=== PATIENT | female | born 1960 | race Caucasian/White ===

== ENCOUNTER 2017-06-20 10:37 | Inpatient (IN) | payer MEDICARE ==
[2017-06-20] MEDS ORDERED: MAGNESIUM HYDROXIDE 2,400 MG/10 ML CUP PO PRN (12:27)
[2017-06-20] MEDS ORDERED: ACETAMINOPHEN TAB 325 MG TAB PO PRN (12:27)
[2017-06-20] MEDS ORDERED: MAG HYDROX/AL HYDROX/SIMETH 30 ML CUP PO PRN (12:27)
[2017-06-20] MEDS ORDERED: ZIPRASIDONE 20 MG VIAL IM PRN (12:27)
[2017-06-20 14:14] VITALS: BMI 22.6
[2017-06-20] MEDS: NICOTINE 7MG/24HR PATCH TRANSDERM SCH ×2 (14:22→14:36)
[2017-06-20] MEDS: LORazepam 1 MG TAB PO PRN (14:44)
[2017-06-21 05:29] VITALS: RESP 16
[2017-06-21 06:59] LABS: Glucose,Whole Blood 108 mg/dL (75-99)
[2017-06-21] MEDS: LORazepam 1 MG TAB PO PRN ×3 (07:12→21:23)
[2017-06-21] MEDS: NICOTINE 7MG/24HR PATCH TRANSDERM SCH (09:32)
[2017-06-21] MEDS: lamoTRIgine 100 MG TAB PO SCH (09:32)
--- NOTE | 2017-06-21 14:17 | P.HP ---
Psychiatric H&P - . H&P Date: 06/21/17 History & Physical: Allergies Allergy/AdvReac Type Severity Reaction Status Date / Time fentanyl Allergy Unknown Verified 06/20/17 12:18 latex Allergy Unknown Verified 06/20/17 12:19 pregabalin [From Lyrica] Allergy Unknown Verified 06/20/17 12:19 Vital Signs Temp 98.0 F 06/21/17 05:29 Pulse 84 06/21/17 05:29 Resp 16 06/21/17 05:29 BP 118/61 06/21/17 05:29 Pulse Ox Intake & Output 06/20/17 06/21/17 06/21/17 18:59 06:59 18:59 Weight 56.1 kg Laboratory Last Values POC Glucose (mg/dL) 108 mg/dL (75-99) H 06/21/17 06:56 POC Glu Conveyor Attendant ID Gloria Dickson 06/21/17 06:56 Identification: Patient is a 48-year-old female who was brought by the police to [facility] in [place], she was transferred here yesterday and signed a voluntary admission. Police reported that the patient was found wandering and talking to trees. Patient states that she was in a park and was incontinent of stool and went into the [place] to rinse herself off. She states that she was then approached by police and she told them she was dehydrated and they released her but then the senior game advisor took her to the hospital. History of Present Illness: Patient reports that she has been following with Dr. Madison as an outpatient for the last 3 years since her discharge from the hospital in 2013. She reports that she has been continued on Lamictal 100 mg a day and that her Paxil was recently discontinued. She states that she was using Xanax but has not been using this as well. Patient was difficult to interview as she was extremely tangential and needed constant redirection to obtain a history. Patient when discussing her [place] the [place] stated that someone who was stalking her called the senior game advisor and then she went on to discuss the use of organic pesticides at the park. Patient stated that the senior game advisor took her to the hospital and she is a "nurse in the field for 20 years" and refused to sign a voluntary because "I'm not paying the bill" she reports that she was put in a glass cube. She was unable to tell me why she was in the hospital and does not feel that she needs to be in the hospital although she did sign in voluntarily. Patient stated that she has just recently purchased a trailer and stated that Dr. Madison was on the lease. Patient states that her Paxil 40 mg is now to be used as needed and she has not taken it for the last 7 days. She reports that she has been taking her Lamictal at a dose of 100 mg a day. Patient states that she is living alone and recently purchased a trailer in [place]. She reports that she has been doing fine, trying to get off the Paxil and had no complaints at this time. 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 Patient was able to endorse an episode of depression in the past where she had some suicidal thoughts and was just fed up with her life but states that this was some time ago. She was unable to tell me why she was admitted 3 years ago and was unable to tell me a history of her prior symptoms. Past Psychiatric History: Patient states that she was treated for 10 years with Seroquel 400 mg but was unable to report to me why she was being treated with that medication or why she sought treatment in the first place. She denies any prior psychiatric admissions other than her admission here in 2013. Patient reports being on Seroquel in the past but was unable to give me her discharge medications from 2013. In reviewing that admission patient was discharged on Lamictal which was being slowly titrated, Paxil 20 mg once a day and Risperdal 2 mg at bedtime. Past Medical/Surgical History: Patient states she has a history of fibromyalgia , arthritis. She reports her only surgical procedure was a tubal ligation. She states that she had no other medications at home other than her psychiatric medications and had been using medical marijuana to treat her pain but was unable to afford a medical marijuana card. Current Medications Acetaminophen (Tylenol Tab) 650 mg PO Q4HR PRN PRN Reason: Pain/Discomfort Al Hydroxide/Mg Hydroxide (Maalox) 30 ml PO Q4HR PRN PRN Reason: GI Upset Lamotrigine (Lamictal) 100 mg PO DAILY NAVEEN Last Admin: 06/21/17 09:32 Dose: 100 mg Lorazepam (Ativan) 1 mg PO TID PRN PRN Reason: Anxiety, Agitation Last Admin: 06/21/17 13:03 Dose: 1 mg Magnesium Hydroxide (Milk Of Magnesia) 2,400 mg PO DAILY PRN PRN Reason: Constipation Nicotine (Habitrol 7mg/24hr Patch) 1 patch TRANSDERM DAILY NAVEEN Last Admin: 06/21/17 09:32 Dose: Not Given Ziprasidone (Geodon) 20 mg IM BID PRN PRN Reason: Agitation or Acute Psychosis Family History: Patient states that her father abused alcohol and denies any other psychiatric history in her family and denies any completed suicides Social History: Patient was born and raised in [place] she reports that her father at the age of 88 her mother is alive and is 94 years of age. Patient states that she has 4 sisters and 2 brothers and states that she is close to all of them. 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 She reports her first occurred at the age of 12 she was at 13 and had another child when she was 16 years of age. This marriage lasted 18 years and they were in 1991. She has never remarried and has no other children. Her children are currently 42 years of age and 38 years of age and she states she has 6 grandchildren. 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 She states she quit working in 2002 due to her fibromyalgia and has been on disability since 2005. She states she was living alone in a trailer she recently purchased in [place]. Patient denies any prior sexual physical or emotional abuse but does report that she has been stopped in the past on 3 occasions. Substance Use History: Patient states that she has never used alcohol on a regular basis and perhaps uses it for times a year. She reports that she has been using marijuana daily for the last 30 years and denies any other drug use currently or in the past. Patient states she recently restarted using cigarettes and is now smoking a half a pack a day. Legal History: Patient denies any legal problems Mental Status:Appearance/Attitude: Patient was dressed in hospital gown was found sitting on her hospital bed numerous papers spread over the bed and she was cooperative. Behavior: Patient did not exhibit any psychomotor retardation or agitation she was able to sit during the interview. Speech/Language: Patient's speech was pressured Thought Process: Patient was tangential at times with flight of ideas jumping from one topic to another and needed constant redirection to remain on topic. Thought Content: Patient denied any auditory or visual hallucinations she denied any paranoid or delusional ideation. She denied having any special herrera. 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 Patient could not understand why she was in the hospital stating that she had been dehydrated and spent 2 hours in the sun talking to the police and that someone who is stalking her had called the senior game advisor who brought her to the hospital in [place]. Suicidal/Homicidal Ideation: She denies any current suicidal or homicidal ideation Sensorium/Cognition: She is alert and oriented to person, place and date and her memory is grossly intact. Intellectual Functioning: Patient's intellectual functioning appears average Mood/Affect: Patient's mood is irritable and her affect is appropriate to her mood. Insight/Judgement: Patient's insight and judgment are poor. Strength/Weaknesses: patient is on disability and has a means of support, unable to assess her living situation, whether she has followed up with outpatient care, Assessment: [Patient's prior admission was reviewed from 2013 and at that time the patient presented with suicidal ideation, complaints of depressed mood and felt helpless and hopeless. She at that time reported that she had a long history of recurrent depressive episodes and manic symptoms. Patient was discharged at that time with a diagnosis of bipolar disorder and was placed on Lamictal, Paxil and Risperdal. Patient presents with pressured speech, flight of ideas and needs constant redirection to stay on task. It is unclear if the patient has been compliant with her follow-up treatment or her medications. Patient's CBC from [facility] revealed a WBC of 12.17, UDS positive for cannabis , basic metabolic panel revealed a potassium level of 3.3 and her UA was WNL] Admission Diagnoses: Bipolar disorder, current episode manic; cannabis use disorder, moderate Plan: Patient was admitted and signed in voluntarily and was placed on routine observation, ordered group and activity therapy, repeat CBC, CMP, TSH were ordered and the patient was begun on Lamictal 100 mg which is what she states she had been taking as an outpatient. Patient was not restarted on her Paxil as she states she had stopped that 7 days ago and due to her current manic state not appropriate at this time. Patient and I discussed starting an antipsychotic but she was not open to that idea until she spoke with Dr. Madison and she was not open to an increase in her dose of Lamictal. Patient requires hospitalization to stabilize her mood. 06/21/17 13:40 06/21/17 14:07 06/21/17 14:15
--- NOTE | 2017-06-21 15:10 | P.MDCNMH ---
History of Present Illness H&P Date: 06/21/17 This is a 56-year-old female patient of Dr. Ocasio the patient states he owes the office money and they will not see her. She is a past medical history of fibromyalgia, anxiety, bipolar depression, tobacco use and dependence , marijuana use. Patient states that she was working at her apartment and was hot and then walked over to the [place] in the park and was talking to the geese and someone called the police on her. She states that she panicked once the police arrived She has history is having a lot of stress with her family with her daughter and daughter's divorce and she takes care of her children. Daughter is planning to move to [place]. Apparently, please filled out a petitioned and patient was taken to [facility] and once stabilized was transferred to [facility] mental health unit. Patient does state that she is on disability from fibromyalgia and that she went off Paxil 7-10 days ago. She states Paxil makes her feel really weak. EKG was in normal sinus rhythm with no QT prolongation. Review of Systems All systems: negative Constitutional: Denies chills, Denies fever Eyes: denies blurred vision, denies pain Ears, nose, mouth and throat: Denies headache, Denies sore throat Cardiovascular: Denies chest pain, Denies shortness of breath Respiratory: Denies cough Gastrointestinal: Denies abdominal pain, Denies diarrhea, Denies nausea, Denies vomiting Genitourinary: Denies dysuria, Denies hematuria Musculoskeletal: Denies myalgias Integumentary: Denies pruritus, Denies rash Neurological: Denies numbness, Denies weakness Psychiatric: Denies anxiety, Denies confusion, Denies depression, Denies hallucinations Endocrine: Denies fatigue, Denies weight change Past Medical History Past Medical History: Fibromyalgia, Osteoarthritis (OA) History of Any Multi-Drug Resistant Organisms: None Reported Additional Past Surgical History / Comment(s): Tubal ligation, lipoma removal Past Anesthesia/Blood Transfusion Reactions: No Reported Reaction Past Psychological History: Anxiety, Bipolar, Depression Smoking Status: Current every day smoker Past Alcohol Use History: None Reported Additional Past Alcohol Use History / Comment(s): Patient is a smoker of half pack of cigarettes per day. She also uses marijuana on a regular basis for anxiety and pain control. She denies any other street drug use. Past Drug Use History: Marijuana - Past Family History Father Additional Family Medical History / Comment(s): Father in his 80s from a stroke and history of diabetes. Mother Additional Family Medical History / Comment(s): Mother is alive at age 94 with Alzheimer's dementia. Brother(s) Additional Family Medical History / Comment(s): Patient has 2 brothers and one has hyperlipidemia. Patient has 4 sisters with no major medical problems. Patient has one son with no major medical problems. Daughter(s) Additional Family Medical History / Comment(s): Patient has one daughter with history of depression and morbid obesity status post bariatric surgery Medications and Allergies Home Medications Medication Instructions Recorded Confirmed Type ALPRAZolam [Xanax] 0.25 mg PO BID PRN 06/20/17 06/20/17 History PARoxetine HCL [PARoxetine HCL] 20 mg PO DAILY 06/20/17 06/20/17 History lamoTRIgine [LaMICtal] 100 mg PO DAILY 06/20/17 06/20/17 History Allergies Allergy/AdvReac Type Severity Reaction Status Date / Time fentanyl Allergy Unknown Verified 06/20/17 12:18 latex Allergy Unknown Verified 06/20/17 12:19 pregabalin [From Lyrica] Allergy Unknown Verified 06/20/17 12:19 Physical Exam Vitals: Vital Signs Temp Pulse Resp BP 06/21/17 05:29 98.0 F 84 16 118/61 06/20/17 13:54 98.2 F 79 18 122/73 Gen: This is a 56-year-old female. She is cooperative but noted to have flight of ideas. HEENT: Head is atraumatic, normocephalic. Pupils equal, round. Sclerae is anicteric. NECK: Supple. No JVD. No lymphadenopathy. No thyromegaly. LUNGS: Clear to auscultation. No wheezes or rhonchi. No intercostal retractions. HEART: Regular rate and rhythm. No murmur. ABDOMEN: Soft. Bowel sounds are present. No masses. No tenderness. EXTREMITIES: No pedal edema. No calf tenderness. NEUROLOGICAL: Patient is awake, alert and oriented x3. Cranial nerves 2 through 12 are grossly intact. Cranial Nerve Examination - Cranial Nerves Cranial Nerve II- Optic: Intact Cranial Nerve III- Oculomotor: Intact Cranial Nerve IV- Trochlear: Intact Cranial Nerve V- Trigeminal: Intact Cranial Nerve - Abducens: Intact Cranial Nerve VII- Facial: Intact Cranial Nerve VIII- Auditory: Intact Cranial Nerve IX- Glossopharyngeal: Intact Cranial Nerve X- Vagus: Intact Cranial Nerve XI- Accessory: Intact Cranial Nerve XII- Hypoglossal: Intact Results Labs: Abnormal Lab Results - Last 24 Hours (Table) 06/21/17 Range/Units 06:56 POC Glucose (mg/dL) 108 H (75-99) mg/dL Assessment and Plan Plan: 1. Bipolar disorder. Patient admitted to the mental health unit. Continue current plan per psychiatrist. 2. Tobacco use and dependence. Continue nicotine patch. 3. Fibromyalgia, stable. 4. Marijuana use. Continue as in #1. Impression and plan of care have been directed as dictated by the signing physician. Ivis Brandon nurse practitioner acting as scribe for signing physician.
[2017-06-21 15:23] LABS: Basophils # (A) 0.1 k/uL (0-0.2); Basophils % (A) 1 %; CH 34.3; CHCM 34.4; Eosinophils # (A) 0.2 k/uL (0-0.7); Eosinophils % (A) 2 %; HCT 44.6 % (34.0-46.0); HDW 2.51; HGB 15.2 gm/dL (11.4-16.0); Luc # (Auto) 0.22; Luc % (Auto) 2; Lymphocytes # (A) 2.8 k/uL (1.0-4.8); Lymphocytes % (A) 25 %; MCH 34.1 pg (25.0-35.0); MCHC 34.1 g/dL (31.0-37.0); Mean Platelet Volume 7.1; Monocytes # (A) 0.6 k/uL (0-1.0); Monocytes % (A) 5 %; Neutrophils # (A) 7.3 k/uL (1.3-7.7); Neutrophils % (A) 65 %; RBC 4.46 m/uL (3.80-5.40); RDW 12.6 % (11.5-15.5); WBC 11.3 k/uL (3.8-10.6); WBC (Perox) 11.31
[2017-06-21 15:34] LABS: ALT 27 U/L (9-52); AST 20 U/L (14-36); Alkaline Phosphatase 59 U/L (38-126); Anion Gap 9 mmol/L; Blood Urea Nitrogen 19 mg/dL (7-17); Calcium 9.9 mg/dL (8.4-10.2); Carbon Dioxide 30 mmol/L (22-30); Chloride 101 mmol/L (98-107); Glucose 63 mg/dL (74-99); Non-African American GFR(MDRD) >60 (>60 ml/min/1.73 sqM); Sodium 140 mmol/L (137-145); Total Bilirubin 0.4 mg/dL (0.2-1.3); Total Protein 7.1 g/dL (6.3-8.2)
[2017-06-22] MEDS: NICOTINE 7MG/24HR PATCH TRANSDERM SCH (08:02)
[2017-06-22] MEDS: LORazepam 1 MG TAB PO PRN ×2 (08:05→15:09)
--- NOTE | 2017-06-22 10:23 | P.PN ---
Progress Note - Text Interval history: The patient is found in her room she follows me to an interview room. I reviewed the psychiatric evaluation no. The patient feels that she has been admitted here inappropriately. Clearly she is demonstrating symptoms of enrique but has little insight into them. She is mainly focused on her symptoms of fibromyalgia. She feels that she was brought in because of dehydration. The patient's outpatient psychiatrist has made contact with us and recommended the patient be placed on Risperdal the patient however is adamantly opposed to that and feels that she has intolerable side effects with Risperdal. She has previously tried Seroquel and will not take that either. We discussed possibly using Abilify and she is more agreeable to that idea. Mental status exam: The patient is a thin female appearing her stated age she is dressed in her own clothing she is mildly disheveled, she is edentulous. Her speech is spontaneous it is fluent she is hyperverbal and pressured. At least twice during the interview I had to redirect her. In terms of thought process she demonstrates significant tangential thinking with some loose associations. Insight and judgment are impaired. She verbalizes no suicidal or homicidal thought. She demonstrates increased psychomotor activity. She was not verbally or physically threatening. Affect was expansive. Plan: The patient will continue on the Lamictal I will initiate Abilify 10 mg daily we may need to titrate that further. We will consider titrating her Lamictal further. She requires continued hospitalization due to her acute symptoms of enrique and the psychosocial dysfunction it is causing. So far she is here on a voluntary basis we will monitor her medication compliance. Vital signs reviewed, lab results reviewed.
[2017-06-22] MEDS: ARIPiprazole 10 MG TAB PO SCH ×2 (12:52→13:18)
[2017-06-22] MEDS: lamoTRIgine 100 MG TAB PO SCH ×2 (12:55→13:02)
[2017-06-23] MEDS: LORazepam 1 MG TAB PO PRN ×3 (00:09→16:06)
[2017-06-23] MEDS: ARIPiprazole 10 MG TAB PO SCH (08:18)
--- NOTE | 2017-06-23 10:23 | P.PN ---
Progress Note - Text Interval history: The patient is found in group she follows me to an interview room. In group she was observed with her head down on the table. She reports she feels tired and feels overwhelmed with fibromyalgia. She states she was given Honey by staff earlier and that helped her pain. She remains agreeable to taking the Abilify we discussed titrating the Lamictal further and she is agreeable to that as well. She continues to feel that she was admitted here inappropriately. We discussed her affect as appearing tangential. She was able to receive that input. Mental status exam: The patient is alert she ambulates in the hallway without ataxia but slowly. She seated in her chair she does have increased psychomotor activity she is very demonstrative with her speech in terms of waving her arms. She demonstrates no verbal or physical aggressiveness. She is edentulous. She describes her mood as being "tired". In terms of speech she remains spontaneous, hyperverbal pressured area she continues to demonstrate a significant amount of tangential thinking. I do still need to interrupt her in session. Her thoughts continue to have a persecutory flavor to them as again she feels she has been placed here unnecessarily. She again really explains the process in which she was brought in by the police. Insight and judgment impaired. No observed abnormal involuntary movements. Plan: The patient will continue on the Abilify 10 mg daily we may consider titrating that further. I will increase her Lamictal to 150 mg daily to further stabilize mood. Vital signs reviewed. We will continue to monitor her for safety and encourage her participation in the milieu.
[2017-06-23] MEDS: lamoTRIgine 100 MG TAB PO SCH ×2 (11:09→12:03)
[2017-06-23] MEDS ORDERED: MELOXICAM 7.5 MG TAB PO PRN (13:03)
[2017-06-24] MEDS: LORazepam 1 MG TAB PO PRN ×3 (00:26→13:56)
[2017-06-24] MEDS: ARIPiprazole 10 MG TAB PO SCH (08:08)
[2017-06-24] MEDS ORDERED: lamoTRIgine 100 MG TAB PO SCH (09:00)
[2017-06-24] MEDS: DICLOFENAC SODIUM GEL 100 GM TUBE TOPICAL PRN ×2 (10:28→17:33)
[2017-06-24] MEDS: lamoTRIgine 100 MG TAB PO SCH (11:56)
--- NOTE | 2017-06-24 17:04 | P.PN ---
Progress Note - Text Date of service: 06/24/2017 Chief complaint: "I feel better today" Subjective: The patient has been seen today as follow-up, chart reviewed, case discussed with the treatment team. The patient reports has not sleeping well for long time due to fibromyalgia and chronic pain. She reports her pain is slightly better today after started Voltaren gel. She reports her pain responded well to the gel but it comes back. Patient reports her mood is much better today and minimized depression and reports her anxiety is much better controlled. Patient denies feeling suicidal and denies any thoughts, intention or plan to hurt self or others. The patient denies any manic symptoms including sustained period of time with elevated or irritable mood, impulsive or irrational behavior, inflated self-esteem, or absence need to sleep due to increases goal-directed activities. The patient denies any auditory or visual hallucinations. Also the patient denies any paranoid ideation. Review of other systems: Patient denies any physical symptoms besides what has been mentioned above. No breathing problems, no chest pain reported today. Objective: Vitals has been reviewed. Mental status examination; Appearance: The patient appears stated age, fairly groomed, no specific features. Gait/posture:normal gait, Normal arm swinging: No abnormal movements. Attitude and behavior: fully engaged, cooperative, fair eye contact. Motor activity: normal psychomotor activity Speech:normal rate, rhythm and articulation Mood: anxious Affect:Constricted Thought form: goal-directed, linear, coherent. Preoccupied with pain and discharge Thought content: Non-delusional, denies suicidal thoughts, denies homicidal thoughts, denies intentions or plans. Perception: Denies any auditory or visual hallucinations Attention: No impairment. Orientation: Patient patient was fully oriented to time place person and situation. Insight: Patient has limited insight about his psychiatric disorder. Judgment: Patient has limited judgment about his psychiatric treatment. Assessment: Bipolar disorder, current episode manic; cannabis use disorder, moderate Plan: Continue with inpatient psychiatric hospitalization for monitoring and continue treatment. Continue group therapy and other unit activities. Continue follow up with medical team to address physical problems including chronic pain and fibromyalgia. Patient to continue Mobic and Voltaren gel Continue psychiatric medications: Abilify 10mg PO Daily and Lamictal 150mg PO daily. Discharge planning is ongoing.
[2017-06-25] MEDS: LORazepam 1 MG TAB PO PRN ×3 (00:11→16:46)
[2017-06-25] MEDS: DICLOFENAC SODIUM GEL 100 GM TUBE TOPICAL PRN ×2 (00:12→08:46)
[2017-06-25] MEDS: ARIPiprazole 10 MG TAB PO SCH (08:46)
--- NOTE | 2017-06-25 11:49 | P.PN ---
Progress Note - Text Date of service: 06/25/2017 Chief complaint: "I feel very good " Subjective: The patient has been seen today as follow-up, chart reviewed, case discussed with the treatment team. Patient slept about 8 hours last night. Patient has been going to groups and other unit activities. Patient reports no appetite problems. Patient continued to report stability of her mental condition, denies feeling depressed or suicidal. Patient denies any drastic mood swings and she denies severe anxiety. The patient denies any manic symptoms. The patient denies any auditory or visual hallucinations. Also the patient denies any paranoid ideation. Patient is very interested in leaving the hospital and going back to her home, to take care of bills and other issues. She reports had meeting yesterday about aftercare and she has an outpatient psychiatrist and lining caser. Review of other systems: Patient denies any physical symptoms besides what has been mentioned above. No breathing problems, no chest pain reported today. Objective: Vitals has been reviewed. Mental status examination; Appearance: The patient appears stated age, fairly groomed, no specific features. Gait/posture:normal gait, Normal arm swinging: No abnormal movements. Attitude and behavior: fully engaged, cooperative, fair eye contact. Motor activity: normal psychomotor activity Speech:normal rate, rhythm and articulation Mood: anxious Affect:Constricted Thought form: goal-directed, linear, coherent. Preoccupied with pain and discharge Thought content: Non-delusional, denies suicidal thoughts, denies homicidal thoughts, denies intentions or plans. Perception: Denies any auditory or visual hallucinations Attention: No impairment. Orientation: Patient patient was fully oriented to time place person and situation. Insight: Patient has fair insight about her psychiatric disorder. Judgment: Patient has limited judgment about her psychiatric treatment. Assessment: Bipolar disorder, current episode manic; cannabis use disorder, moderate Plan: Continue with inpatient psychiatric hospitalization for monitoring and continue treatment. Continue group therapy and other unit activities. Continue follow up with medical team to address physical problems including chronic pain and fibromyalgia. Patient to continue Mobic and Voltaren gel Continue psychiatric medications: Abilify 10mg PO Daily and Lamictal 150mg PO daily. Discharge planning is ongoing.
[2017-06-25] MEDS: lamoTRIgine 100 MG TAB PO SCH (12:59)
[2017-06-26] MEDS: DICLOFENAC SODIUM GEL 100 GM TUBE TOPICAL PRN ×3 (00:31→22:33)
[2017-06-26] MEDS: LORazepam 1 MG TAB PO PRN ×3 (00:31→16:19)
[2017-06-26] MEDS: ARIPiprazole 10 MG TAB PO SCH (08:57)
--- NOTE | 2017-06-26 10:13 | P.PN ---
Progress Note - Text Interval history: The patient is found in group she follows me to an interview room. She reports her mood is improving. She reports she sleeping well however it was documented she slept 3 hours. Appetite stable. She remains compliant with medication including the Abilify and Lamictal. Progress notes from the weekend were reviewed. Vital signs reviewed they're within normal limits. The patient demonstrates future oriented thinking in terms of discharge planning. We discussed involving her sister and discharge planning and she is agreeable. Mental status exam: The patient is alert she is dressed in her own clothing hygiene grooming adequate. She is mildly tired appearing. Speech is fluent spontaneous nonpressured she demonstrated circumstantial thinking but no tangential thinking today. No loose associations or flight of ideas. She is endorsing no hallucinations she does not spontaneously verbalize any delusional thought process. Insight and judgment appear to be improving. She demonstrates no involuntary movements. She demonstrates no verbal or physical aggressiveness. Eye contact is appropriate. Affect is appropriately expressive. Plan: The patient does appear to be stabilizing. Social work will be asked to arrange a support meeting likely involving her sister. We will anticipate discharging the patient in the next 1-2 days if she demonstrates continued stability/clinical improvement. We will continue to monitor her for safety.
[2017-06-26] MEDS: lamoTRIgine 100 MG TAB PO SCH (12:08)
[2017-06-27] MEDS: LORazepam 1 MG TAB PO PRN ×2 (00:35→09:37)
[2017-06-27 05:38] VITALS: TEMP 98
[2017-06-27] MEDS: ARIPiprazole 10 MG TAB PO SCH (09:36)
[2017-06-27 09:38] VITALS: BP 103/74; PULSE 109
--- NOTE | 2017-06-27 10:18 | P.DS ---
Providers Date of admission: 06/20/17 10:37 Expected date of discharge: 06/27/17 Attending physician: Linus Miller Consults: 06/20/17 12:39 Consult Physician Routine Consulting Provider: Tova Hnut Consult Reason/Comments: H and P and medical management Do you want consulting provider notified?: Yes Primary care physician: Stated None - Discharge Diagnosis(es) (1) Bipolar 1 disorder, manic, moderate Current Visit: Yes Status: Acute Priority: High (2) Cannabis use disorder, mild, abuse Current Visit: Yes Status: Acute Priority: Medium Hospital Course: Brief summary of admission note: This patient is a 56-year-old female who is admitted to the hospital with acute symptoms of enrique. It was reported she was brought in by police they found her wandering talking to trees. She was incontinent of stool and went into the [facility] to clean herself off. She had informed police she was dehydrated in an effort to explain her erratic behavior. For full detail please refer to the psychiatric evaluation dictated on 06/21/2017. Summary of hospital course: The patient was admitted to the mental health unit she did sign in voluntarily. She was continued on her Lamictal. I assumed care of the patient the next business day. Reviewed her presenting symptoms and medication options. She initially refused to go back on Risperdal or to use Seroquel. She was agreeable to using Abilify which we started at 10 mg daily. She was continued on Lamictal and we titrated the dose to 150 mg daily. During the course of the hospitalization the patient demonstrated progressive improvement of her manic symptoms. Initially she was quite pressured and she demonstrated tangential thinking and loose associations area she is now demonstrating a linear thought process that is goal-directed. She was seen by internal medicine for routine history and physical exam. A family meeting was held yesterday involving her sister facilitated by social work. Her sister is agreeable to helping monitor medication compliance. The patient demonstrated no agitated behavior. Mental status exam: The patient is a female appearing her stated age. She is dressed in her own clothing. Hygiene and grooming are adequate. Speech is fluent and spontaneous nonpressured. She reports her mood is much improved she is reporting no suicidal or homicidal ideation intent or plan. She is endorsing no auditory or visual hallucinations or specific delusions. There is no overt evidence of psychosis. Thought process is linear she can be circumstantial at times but there is no evidence of tangential thinking loose associations or flight of ideas. Insight and judgment have improved. She remains oriented to person place and date. She demonstrates no verbal or physical aggressiveness. There is no evidence of abnormal involuntary movements. Affect is appropriately expressive. Impressions 1. Bipolar 1 disorder most recent manic, cannabis use disorder 2. Fibromyalgia 3. Recent psychosocial dysfunction due to acute psychiatric symptoms Plan: The patient will be discharged mental health unit today she will return home. She plans on following up with Dr. Madison for psychiatric services and she will also be scheduled with a therapist. She will continue on Abilify 10 mg daily and Lamictal 150 mg daily. She has been informed during the course of the hospitalization she should discontinue use of marijuana she is encouraged to abstain from alcohol use. There is no imminent safety risk she is appropriate for transition to outpatient care. Patient Condition at Discharge: Stable Plan - Discharge Summary New Discharge Prescriptions: New ARIPiprazole [Abilify] 10 mg PO DAILY #30 tab lamoTRIgine [LaMICtal] 150 mg PO DAILY #30 tab Discontinued lamoTRIgine [LaMICtal] 100 mg PO DAILY PARoxetine HCL [PARoxetine HCL] 20 mg PO DAILY ALPRAZolam [Xanax] 0.25 mg PO BID PRN PRN Reason: Anxiety Discharge Medication List ARIPiprazole [Abilify] 10 mg PO DAILY #30 tab 06/27/17 [Rx] lamoTRIgine [LaMICtal] 150 mg PO DAILY #30 tab 06/27/17 [Rx]
[2017-06-27] MEDS: lamoTRIgine 100 MG TAB PO SCH (11:15)
== END 2017-06-27 12:36 | disposition home or self-care (01) | DRG 885 ==
LOC: 3MHU 10:37
PROVIDERS: ADMIT Psychiatry & Neurology Psychiatry; ATTEND Psychiatry & Neurology Psychiatry
DX: F31.12 Bipolar disorder, current episode manic without psychotic features, moderate (principal); F41.9 Anxiety disorder, unspecified; F12.20 Cannabis dependence, uncomplicated; M79.7 Fibromyalgia; F17.210 Nicotine dependence, cigarettes, uncomplicated; G89.29 Other chronic pain; M19.91 Primary osteoarthritis, unspecified site; Z79.899 Other long term (current) drug therapy; Z88.5 Allergy status to narcotic agent; Z88.8 Allergy status to other drugs, medicaments and biological substances; Z91.040 Latex allergy status
CPT/HCPCS: 80053; 84443; 85025; 93005

== ENCOUNTER → 2018-11-01 | Outpatient (CLI) | payer MEDICARE ==
--- NOTE | 2018-11-02 07:34 | US ---
EXAMINATION TYPE: US thyroid st tissue head/neck DATE OF EXAM: 11/01/2018 COMPARISON: 2016 CLINICAL HISTORY: E04.1 THYROID NODULE R07.9 CP. GLAND SIZE: Right Lobe: 4.9 x 0.7 x 1.3 cm Overall Parenchyma: homogenous Left Lobe: 5.2 x 0.9 x 0.6 cm Overall Parenchyma: homogeneous Isthmus Thickness: 0.1 cm NODULES RIGHT: # of nodules measured on right: 3 1. 0.3 X 0.4 x 0.4 cm cystic nodule at the lower pole with well-defined margins; . This nodule is wider than tall and shows no intranodular vascularity. Prior size: no prior measure 2. 0.5 X 0.5 x 0.5 cm cystic nodule at the lower pole with well-defined margins; . This nodule is w ider than tall and shows no intranodular vascularity. Prior size: no prior measure 3. 0.3 X 0.4 x 0.3 cm cystic nodule at the upper pole with well-defined margins; . This nodule is w ider than tall and shows no intranodular vascularity. Prior size: no prior measure LEFT: # of nodules measured on left: 1 1. 0.8 X 0.5 x 0.7 cm cystic nodule at the upper pole with well-defined margins; . This nodule is wider than tall and shows no intranodular vascularity. Prior size: 0.7 x 0.4 x 0.6 cm ISTHMUS: # of nodules measured in the isthmus: 0 Bilateral neck scanned, no evidence of lymphadenopathy. IMPRESSION: Mildly enlarged thyroid gland containing bilateral subcentimeter thyroid nodules. All of these nodule s appear as a benign colloid cysts.
--- NOTE | 2018-11-02 11:14 | ECHOF ---
Referral Reason:E04.1 Thyroid Nodule , R07.9 Chest Pain MEASUREMENTS -------- HEIGHT: 162.6 cm WEIGHT: 56.7 kg BP: RVIDd: 2.6 cm (< 3.3) IVSd: 0.9 cm (0.6 - 1.1) LVIDd: 4.0 cm (3.9 - 5.3) LVPWd: 0.9 cm (0.6 - 1.1) IVSs: 1.1 cm LVIDs: 2.9 cm LVPWs: 1.1 cm LAESV Index (A-L): 14.11 ml/m Ao Diam: 2.4 cm (2.0 - 3.7) AV Cusp: 1.7 cm (1.5 - 2.6) LA Diam: 1.8 cm (2.7 - 3.8) EPSS: 0.6 cm MV E Kishan: 0.82 m/s MV DecT: 242 ms MV A Kishan: 1.04 m/s MV E/A Ratio: 0.79 RAP: 5.00 mmHg RVSP: 25.21 mmHg MV EF SLOPE: 80.69 mm/s (70 - 150) MV EXCURSION: 1.29 cm (> 18.000) FINDINGS -------- Sinus rhythm. This was a technically good study. The left ventricular size is normal. Left ventricular wall thickness is normal. Overall left vent ricular systolic function is normal with, an EF between 55 - 60 %. The right ventricle is normal in size and function. Normal LA size by volume 22+/-6 ml/m2. The right atrium is normal in size. The aortic valve is trileaflet, and appears structurally normal. No aortic stenosis or regurgitation. The mitral valve leaflets are mildly thickened. Mild mitral regurgitation is present. Mild tricuspid regurgitation present. Right ventricular systolic pressure is normal at < 35 mmHg. The right ventricular systolic pressure, as measured by Doppler, is 25.21mmHg. Trace/mild (physiologic) pulmonic regurgitation. The aortic root size is normal. Normal inferior vena cava with normal inspiratory collapse consistent with estimated right atrial pre ssure of 5 mmHg. There is no pericardial effusion. CONCLUSIONS -------- 1. Sinus rhythm. 2. This was a technically good study. 3. The left ventricular size is normal. 4. Left ventricular wall thickness is normal. 5. Overall left ventricular systolic function is normal with, an EF between 55 - 60 %. 6. Normal LA size by volume 22+/-6 ml/m2. 7. The aortic valve is trileaflet, and appears structurally normal. No aortic stenosis or regurgitati on. 8. The mitral valve leaflets are mildly thickened. 9. Mild mitral regurgitation is present. 10. Mild tricuspid regurgitation present. 11. Right ventricular systolic pressure is normal at < 35 mmHg. 12. Trace/mild (physiologic) pulmonic regurgitation. 13. The aortic root size is normal. 14. There is no pericardial effusion. CARD ROOM MANAGER: Vasquez Camargo RDCS
== END | disposition home or self-care (01) ==
LOC: RADECHMAIN 15:57
PROVIDERS: ATTEND Physician Assistant
DX: E04.2 Nontoxic multinodular goiter (principal); I08.1 Rheumatic disorders of both mitral and tricuspid valves; I08.8 Other rheumatic multiple valve diseases
CPT/HCPCS: 76536; 93306

== ENCOUNTER → 2018-11-19 | Outpatient (CLI) | payer MEDICARE ==
--- NOTE | 2018-11-20 06:59 | CT ---
EXAMINATION TYPE: CT chest w con DATE OF EXAM: 11/19/2018 COMPARISON: None HISTORY: 57-year-old female, chest pain on breathing. Right upper chest injury 6 months ago, pain sin ce. TECHNIQUE: Contiguous axial scanning of the chest after the administration of 100 mL of Isovue M300. Coronal/sagittal reconstructions performed. CT DLP: 407mGycm. Automatic exposure control utilized for a dose reduction. FINDINGS: Heart normal size without pericardial effusion. Aorta normal caliber with conventional arch vessel branching anatomy. Small 5 mm hyperdense nodule suggested in the left lobe of the thyroid gland. Scattered nonenlarged mediastinal lymph nodes. No thoracic lymphadenopathy by CT size criteria. There is some strandy interstitial densities in the basilar right middle lobe and inferior lingula wi th minimal associated bronchiectatic change and suggestion of some distal mucoid impaction. A few darren e-in-bud opacities seen in the lateral right midlung, axial image 27. Otherwise, no consolidation or pleural effusion. Prominent ingested debris and fluid within the visualized stomach. There is linear hypodense filling defect within the upper SMV, axial image 65 suspected to be unopaci fied blood and contrast mixing artifact. Bones: Endplate spondylosis throughout the mid to lower thoracic spine. No osseous destructive proces s. Healed fracture deformities of the posterior left sixth through ninth ribs. IMPRESSION: 1. Healed fracture deformities of the left posterior sixth through ninth ribs. 2. Interstitial densities with some distal airways mucoid plugging and minimal bronchiectatic change in the inferior lingula and basilar right middle lobe. Additional patch of tree-in-bud opacities late ral right midlung. Pattern of findings can be seen in the setting of indolent CHUNG infection. Clinical ly correlate. 3. Linear filling defect in the upper SMV on a few of the last images. This is suspected to relate to mixing artifact. If patient has risk factors for hypercoagulable state, dedicated contrast-enhanced CT of the abdomen/pelvis performed in the late portal venous phase can be considered to exclude clot here.
== END ==
LOC: RADCTMAIN 13:17
PROVIDERS: ATTEND Midwife
DX: R91.8 Other nonspecific abnormal finding of lung field (principal)
CPT/HCPCS: 71260; Q9967

== ENCOUNTER → 2018-12-17 | Outpatient (CLI) | payer MEDICARE ==
--- NOTE | 2018-12-18 10:39 | CT ---
EXAMINATION TYPE: CT abdomen pelvis w con DATE OF EXAM: 12/17/2018 HISTORY: Abnormal findings on CT CT DLP: 905mGycm Automated Exposure Control for Dose Reduction was Utilized. CONTRAST: CT scan of the abdomen and pelvis is performed with IV Contrast, patient injected with 100 mL of Isov ue 300. COMPARISON: Chest CT November 19, 2018. FINDINGS: LUNG BASES: There is persistent increased interstitial opacities right middle lobe abutting diaphragm and similar involvement in the lingula with slight nodularity not significantly changed from prior. LIVER/GB: No significant abnormality is appreciated. PANCREAS: No significant abnormality is seen. SPLEEN: No significant abnormality is seen. ADRENALS: No significant abnormality is seen. KIDNEYS: No significant abnormality is seen. BOWEL: Oral contrast reaches level of distal transverse colon. There is no suspicious small or large bowel dilatation. Normal contrast-filled appendix is present. UTERUS/ADNEXA: Anteverted uterus is seen. Scattered pelvic phleboliths are noted. LYMPH NODES: No greater than 1cm abdominal or pelvic lymph nodes are appreciated. OSSEOUS STRUCTURES: No significant abnormality is seen. OTHER: There is improved contrast opacification of the SMV near portal confluence on current study ax ial images 19 through 21, prior study likely reflect mixing of nonopacified and opacified draining ve ins. IMPRESSION: No persistent filling defect upper SMV to suggest partial thrombosis.
== END | disposition home or self-care (01) ==
LOC: RADCTMAIN 14:02
PROVIDERS: ATTEND Family Medicine
DX: R93.89 Abnormal findings on diagnostic imaging of other specified body structures (principal)
CPT/HCPCS: 74177; Q9967

== ENCOUNTER → 2019-01-01 | Outpatient (CLI) | payer MEDICARE ==
--- NOTE | 2019-01-01 15:42 | NM ---
EXAMINATION TYPE: NM hepatobiliary w EF DATE OF EXAM: 01/01/2019 COMPARISON: NONE HISTORY: R10.84 Abdominal pain TECHNIQUE: After the intravenous administration of 5.15 mCi Tc 99m Mebrofenin hepatobiliary scintigra phy is performed. Immediate images post injection. FINDINGS: There is satisfactory initial accumulation of tracer by the liver. The gallbladder is visualized wit hin 8 minutes. The small bowel activity is noted within 12 minutes. At one hour 8 ounces of oral en sure plus is given to mimic CCK and gallbladder ejection fraction is calculated at 93 percent . IMPRESSION: 1. Elevated gallbladder ejection fraction of 93% may reflect hypercontractile state.
== END | disposition home or self-care (01) ==
LOC: RADNMMAIN 13:18
PROVIDERS: ATTEND Surgery
DX: R10.84 Generalized abdominal pain (principal)
CPT/HCPCS: 78226; A9537

== ENCOUNTER 2019-01-25 07:58 | Day surgery (SDC) | payer MEDICARE ==
[2019-01-22 14:55] VITALS: BMI 21.9
[~2019-01-25 07:58] MED LIST: DEXAMETHASONE SOD PHOSPHATE 10 MG/ML 1 ML VIAL IV ONE; HEPARIN SODIUM,PORCINE 5,000 UNIT/ML 1 ML VIAL SQ ONE; HYDROmorphone 0.5 MG/0.5 ML SYRINGE IVP PRN; LACTATED RINGERS 1,000 ML IV SCH; MIDAZOLAM (PF) 2 MG/2 ML VIAL IV PRN; ONDANSETRON 4 MG/2 ML VIAL IVP ONE; SCOPOLAMINE 1.5MG/72HR PATCH TRANSDERM ONE; ceFAZolin IN SWFI 2 GM/20 ML SYRINGE IVP ONE
[2019-01-25 08:22] VITALS: TEMP 98
[2019-01-25] MEDS ORDERED: LIDOCAINE 1% 20 ML VIAL (10MG/ML) FOR IV START INTRADERMA ONE (08:30)
--- NOTE | 2019-01-25 09:48 | P.GSHP ---
History of Present Illness H&P Date: 01/25/19 Chief Complaint: Right upper quadrant pain 's is a 58-year-old female who presents today for laparoscopic cholecystectomy. Patient with recurrent quadrant pain. Her recent HIDA scan shows abnormal ejection fraction consistent with biliary hypokinesis and chronic cholecystitis. Past Medical History Past Medical History: Fibromyalgia, Osteoarthritis (OA) Additional Past Medical History / Comment(s): laura ringing in ears History of Any Multi-Drug Resistant Organisms: None Reported Past Surgical History: Tubal Ligation Additional Past Surgical History / Comment(s): Tubal ligation, lipoma removal Past Anesthesia/Blood Transfusion Reactions: No Reported Reaction Smoking Status: Former smoker - Past Family History Father Family Medical History: Diabetes Mellitus Additional Family Medical History / Comment(s): Father in his 80s from a stroke and history of diabetes. Mother Additional Family Medical History / Comment(s): Mother is alive at age 94 with Alzheimer's dementia. Brother(s) Additional Family Medical History / Comment(s): Patient has 2 brothers and one has hyperlipidemia. Patient has 4 sisters with no major medical problems. Patient has one son with no major medical problems. Daughter(s) Additional Family Medical History / Comment(s): Patient has one daughter with history of depression and morbid obesity status post bariatric surgery Medications and Allergies Home Medications Medication Instructions Recorded Confirmed Type Aspirin [Adult Low Dose Aspirin EC] 81 mg PO DAILY 01/22/19 01/25/19 History Allergies Allergy/AdvReac Type Severity Reaction Status Date / Time fentanyl Allergy Unknown Verified 01/22/19 14:47 latex Allergy Anaphylaxis Verified 01/22/19 14:55 pregabalin [From Lyrica] Allergy Unknown Verified 01/22/19 14:47 Surgical - Exam Vital Signs Temp Pulse Resp BP Pulse Ox 98.0 F 62 16 114/66 98 01/25/19 08:17 01/25/19 08:17 01/25/19 08:17 01/25/19 08:17 01/25/19 08:17 - General well developed, well nourished, no distress - Eyes PERRL, normal ocular movement - ENT normal pinna - Neck no masses - Respiratory normal expansion - Cardiovascular Rhythm: regular - Abdomen Abdomen: soft, non tender Assessment and Plan Assessment: Right upper quadrant pain Chronic cholecystitis We'll perform laparoscopic cholecystectomy.
[2019-01-25] MEDS ORDERED: NEOSTIGMINE 1 MG/ML 10 ML VIAL ONE (10:20)
[2019-01-25] MEDS ORDERED: SUCCINYLCHOLINE CHLORIDE 100 MG/5 ML SYR IV ONE (10:20)
[2019-01-25] MEDS ORDERED: KETOROLAC 30 MG/ML 1 ML VIAL ONE (10:20)
[2019-01-25] MEDS ORDERED: LIDOCAINE 1% INJ 10MG/ML (20 ML MDV) ONE (10:20)
[2019-01-25] MEDS ORDERED: ROCURONIUM BROMIDE 10 MG/ML 10 ML VIAL IV ONE (10:20)
[2019-01-25] MEDS ORDERED: MIDAZOLAM 2 MG/2 ML VIAL ONE (10:20)
[2019-01-25] MEDS ORDERED: MORPHINE SULFATE 10 MG/ML SYRINGE ONE (10:20)
[2019-01-25] MEDS ORDERED: GLYCOPYRROLATE 0.2 MG/ML 2 ML VIAL ONE (10:20)
[2019-01-25] MEDS ORDERED: PROPOFOL 10 MG/ML 20 ML VIAL IV ONE (10:20)
[2019-01-25] MEDS ORDERED: BUPIVACAIN-EPI 0.5%-1:200,000 30 ML VIAL SQ ONE (10:41)
--- NOTE | 2019-01-25 10:54 | P.OP ---
Date of Procedure: 01/25/19 Preoperative Diagnosis: Laparoscopic cholecystectomy Postoperative Diagnosis: Cholecystitis Procedure(s) Performed: Laparoscopic cholecystectomy Anesthesia: APRIL Surgeon: Arnie Draper Estimated Blood Loss (ml): 5 Pathology: other (Gallbladder) Condition: stable Disposition: PACU Description of Procedure: The patient was placed on the operating table. The patient received a general endotracheal tube anesthesia. The patients abdomen was prepped and draped in the usual sterile fashion. Through an infraumbilical stab incision, the fascia of the anterior abdominal wall was grasped with a pair of Kochers and then the Veress needle was placed in the peritoneal cavity. Position of the Veress needle was confirmed with positive drop test. The abdomen was then insufflated. After adequate insufflation, the 10 mm trocar was placed in the peritoneal cavity. Following this the laparoscope was placed in the peritoneal cavity. The patient was placed in the head-up, right side up position and then a 5 mm trocar was placed in the right lateral and right subcostal position under direct visualization. A 8 mm trocar was placed in the epigastric position. The gallbladder was grasped in the fundus and infundibulum. Traction on the gallbladder was placed in the lateral and the cephalad positions. The triangle of Calot was visualized.. The cystic duct was bluntly dissected until the union of the cystic duct and common bile duct was seen. The cystic duct was then divided and sealed with the Harmonic scissors. A PDS Endoloop was then placed throughout the cystic duct stump. The cystic artery divided and sealed with the Harmonic scissors. The gallbladder was then removed from the liver bed using Harmonic scissors. The gallbladder was then extracted through the epigastric port site. Operative field was checked for any bleeding spots and Harmonic scissors was used to coagulate the liver bed. The abdomen was irrigated. The trocars were removed. The skin was closed using interrupted 3-0 Vicryl suture. Dermabond dressing were applied. The patient tolerated the procedure well.
[2019-01-25 11:26] VITALS: RESP 16
[2019-01-25] MEDS ORDERED: HYDROcodone/APAP 7.5-325MG 1 EACH TAB PO ONE (12:15)
[2019-01-25 12:31] VITALS: BP 131/67; PULSE 55
== END 2019-01-25 12:55 | disposition home or self-care (01) ==
LOC: OR 07:58
PROVIDERS: ATTEND Surgery
DX: K81.1 Chronic cholecystitis (principal); M79.7 Fibromyalgia; M19.90 Unspecified osteoarthritis, unspecified site; Z87.891 Personal history of nicotine dependence; Z79.82 Long term (current) use of aspirin; Z88.5 Allergy status to narcotic agent; Z88.8 Allergy status to other drugs, medicaments and biological substances
CPT/HCPCS: 88304; 47562; J2250; J1644; J1100; J2710; J2270; J2405; J2001; J1885; J0330; J2704; J0690

== ENCOUNTER → 2019-06-17 | Outpatient (CLI) | payer MEDICARE ==
--- NOTE | 2019-06-17 14:28 | US ---
EXAMINATION TYPE: US thyroid st tissue head/neck DATE OF EXAM: 06/17/2019 COMPARISON: US 2018 CLINICAL HISTORY: E04.1 Thyroid nodule. Follow up thyroid cysts GLAND SIZE: Right Lobe: 5.0 x 1.0 x 1.5 cm Overall Parenchyma: homogenous Left Lobe: 5.2 x 1.1 x 1.3 cm Overall Parenchyma: homogeneous Isthmus Thickness: 0.3 cm NODULES RIGHT: # of nodules measured on right: 3 1. 0.6 X 0.4 x 0.4 cm hypoechoic cystic nodule at the lower pole with well-defined margins; present with microcalcification. This nodule is as tall as it is wide and shows no intranodular vascularity . Prior size: 0.3 x 0.4 x 0.4 cm 2. 0.7 X 0.6 x 0.5 cm hypoechoic cystic nodule at the lower pole with well-defined margins; present with 0.3cm calcification. This nodule is taller than wide and shows no intranodular vascularity. Prior size: 0.5 x 0.5 x 0.5 cm 3. 0.5 X 0.4 x 0.5 cm hypoechoic cystic nodule at the upper pole with well-defined margins; present with microcalcification. This nodule is wider than tall and shows no intranodular vascularity. Prior size: 0.3 x 0.4 x 0.3 cm LEFT: # of nodules measured on left: 1 1. 0.9 X 0.5 x 0.7 cm hypoechoic cystic nodule at the upper pole with well-defined margins; present with microcalcifications. This nodule is wider than tall and shows no intranodular vascularity. Prior size: 0.9 x 0.5 x 0.7 cm ISTHMUS: # of nodules measured in the isthmus: 0 Bilateral neck scanned, no evidence of lymphadenopathy. IMPRESSION: Thyroid glandular heterogeneity without stable nonspecific nodularity. Glandular enlargement noted as well.
== END | disposition home or self-care (01) ==
LOC: RADUSWWP 13:39
PROVIDERS: ATTEND Surgery
DX: E04.9 Nontoxic goiter, unspecified (principal)
CPT/HCPCS: 76536

== ENCOUNTER 2019-07-28 14:38 | Emergency (ER) | payer MEDICARE ==
[2019-07-28 14:42] VITALS: RESP 18
--- NOTE | 2019-07-28 15:26 | ED ---
General Adult HPI - General Source: patient, police, RN notes reviewed Mode of arrival: ambulatory Limitations: no limitations <Pravin Spaulding - Last Filed: 07/28/19 15:24> <Jeffrey Atkinson - Last Filed: 07/28/19 18:23> - General Chief complaint: Psychiatric Symptoms Stated complaint: Mental Health Time Seen by Provider: 07/28/19 14:46 - History of Present Illness Initial comments: Patient is a pleasant 58-year-old female presenting to the emergency department for mental health evaluation. Patient states her children have been complaining that she washes things too much and is to clean. Patient does not feel this is true. Patient does admit that she feels people are out to get her especially over the past few days. Patient states this is not the first time she felt this way. Patient is brought in by police on pickup order. Patient denies hallucinations. Patient denies suicidal or homicidal ideation. Patient states she is not on any medication currently and is not supposed to. No new physical complaints. (Pravin Spaulding) - Related Data Home Medications Medication Instructions Recorded Confirmed Methylsulfonylmethane [MSM] 900 mg PO DAILY PRN 07/28/19 07/28/19 Allergies Allergy/AdvReac Type Severity Reaction Status Date / Time fentanyl Allergy Unknown Verified 07/28/19 14:51 latex Allergy Anaphylaxis Verified 07/28/19 14:51 pregabalin [From Lyrica] Allergy Unknown Verified 07/28/19 14:51 Review of Systems ROS Other: All systems not noted in ROS Statement are negative. Constitutional: Denies: fever Eyes: Denies: eye pain ENT: Denies: ear pain Respiratory: Denies: cough Cardiovascular: Denies: chest pain Endocrine: Denies: fatigue Gastrointestinal: Denies: abdominal pain Genitourinary: Denies: dysuria Musculoskeletal: Denies: back pain Skin: Denies: rash Neurological: Denies: weakness Psychiatric: Reports: as per HPI <Pravin Spaulding - Last Filed: 07/28/19 15:24> ROS Other: All systems not noted in ROS Statement are negative. <Jeffrey Atkinson - Last Filed: 07/28/19 18:23> ROS Statement: Those systems with pertinent positive or pertinent negative responses have been documented in the HPI. Past Medical History Past Medical History: Fibromyalgia, Osteoarthritis (OA) Additional Past Medical History / Comment(s): laura ringing in ears History of Any Multi-Drug Resistant Organisms: None Reported Past Surgical History: Tubal Ligation Additional Past Surgical History / Comment(s): Tubal ligation, lipoma removal Past Anesthesia/Blood Transfusion Reactions: No Reported Reaction Past Psychological History: Anxiety, Bipolar, Depression Smoking Status: Current some day smoker Past Alcohol Use History: Occasional Past Drug Use History: Marijuana - Past Family History Father Family Medical History: Diabetes Mellitus Additional Family Medical History / Comment(s): Father in his 80s from a stroke and history of diabetes. Mother Additional Family Medical History / Comment(s): Mother is alive at age 94 with Alzheimer's dementia. Brother(s) Additional Family Medical History / Comment(s): Patient has 2 brothers and one has hyperlipidemia. Patient has 4 sisters with no major medical problems. Patient has one son with no major medical problems. Daughter(s) Additional Family Medical History / Comment(s): Patient has one daughter with history of depression and morbid obesity status post bariatric surgery <Pravin Spaulding - Last Filed: 07/28/19 15:24> General Exam Limitations: no limitations General appearance: alert, in no apparent distress, other (Patient's clothing with strong odor of bleach.) Head exam: Present: normocephalic Eye exam: Present: normal appearance Neck exam: Present: normal inspection Respiratory exam: Present: normal lung sounds bilaterally Cardiovascular Exam: Present: regular rate, normal rhythm GI/Abdominal exam: Present: soft. Absent: tenderness Extremities exam: Present: normal inspection Neurological exam: Present: alert Psychiatric exam: Present: normal affect, normal mood Skin exam: Present: normal color <Pravin Spaulding - Last Filed: 07/28/19 15:24> Course Vital Signs 07/28/19 14:39 Temperature 99.1 F Pulse Rate 88 Respiratory 18 Rate Blood Pressure 150/92 O2 Sat by Pulse 98 Oximetry Medical Decision Making <Jeffrey Atkinson - Last Filed: 07/28/19 18:23> - Medical Decision Making The patient was evaluated by psychiatric service and is on wrist herself or in what else at this time. Patient will be discharged with outpatient follow-up. (Jeffrey Atkinson) - Lab Data Lab Results 07/28/19 Range/Units 16:22 Urine Opiates Screen Not Detected (NotDetected) Ur Oxycodone Screen Not Detected (NotDetected) Urine Methadone Screen Not Detected (NotDetected) Ur Propoxyphene Screen Not Detected (NotDetected) Ur Barbiturates Screen Not Detected (NotDetected) U Tricyclic Antidepress Not Detected (NotDetected) Ur Phencyclidine Scrn Not Detected (NotDetected) Ur Amphetamines Screen Not Detected (NotDetected) U Methamphetamines Scrn Not Detected (NotDetected) U Benzodiazepines Scrn Not Detected (NotDetected) Urine Cocaine Screen Not Detected (NotDetected) U Marijuana (THC) Screen Detected H (NotDetected) Disposition <Pravin Spaulding - Last Filed: 07/28/19 15:24> Is patient prescribed a controlled substance at d/c from ED?: No <Jeffrey Atkinson - Last Filed: 07/28/19 18:23> Clinical Impression: Adjustment reaction Disposition: HOME SELF-CARE Condition: Good Instructions (If sedation given, give patient instructions): Mood Disorders (ED) Referrals: Joseph Ocasio MD [Primary Care Provider] - 1-2 days
[2019-07-28 16:39] LABS: Amphetamine Screen,Urine Not Detected (NotDetected); Barbiturate Screen,Urine Not Detected (NotDetected); Benzodiazepines Screen,Urine Not Detected (NotDetected); Cocaine Screen,Urine Not Detected (NotDetected); Methadone Screen, Urine Not Detected (NotDetected); Opiate Screen,Urine Not Detected (NotDetected); Oxycodone Screen, Urine Not Detected (NotDetected); Phencyclidine Screen,Urine Not Detected (NotDetected); Tricyclic Antidepressant,Urine Not Detected (NotDetected); Urn Cannabinoid Scrn Detected (NotDetected)
[2019-07-28 19:07] VITALS: BP 143/87; PULSE 79; TEMP 98.3
== END 2019-07-28 19:07 | disposition home or self-care (01) ==
LOC: EC 14:38
DX: F43.20 Adjustment disorder, unspecified (principal); F17.200 Nicotine dependence, unspecified, uncomplicated; Z91.040 Latex allergy status; Z88.5 Allergy status to narcotic agent; Z88.8 Allergy status to other drugs, medicaments and biological substances
CPT/HCPCS: 80306; 82075; 99284

== ENCOUNTER 2019-11-06 19:44 | Emergency (ER) | payer MEDICARE ==
[2019-11-06 19:55] VITALS: BP 178/93; PULSE 103; RESP 18; TEMP 98.5
--- NOTE | 2019-11-06 20:20 | ED ---
General Adult HPI - General Chief complaint: Allergic Reaction Stated complaint: Allergic Reaction Time Seen by Provider: 11/06/19 19:57 Source: patient Mode of arrival: ambulatory Limitations: no limitations - History of Present Illness Initial comments: Patient is a 58-year-old female presenting to the emergency Department with complaints of a burning sensation on her scalp that has been going on for the past 2 months. Patient states she has been sleeping on a couch for the last 2 months and thinks she is ALLERGIC to it. Patient states she has been having "swelling of her scalp, face as well as flakes from her scalp." Patient states she ended up cutting off her hair yesterday and has been doing wrist rinses for about 20 minutes each day. Patient is also been re-washing all of her clothes and bedding. Patient denies fever, chills, nausea, vomiting. Patient has not tried Benadryl for this. Patient has no other complaints at this time. Upon arrival to the ER, vital signs are stable. - Related Data Home Medications Medication Instructions Recorded Confirmed Methylsulfonylmethane [MSM] 900 mg PO DAILY PRN 07/28/19 07/28/19 Previous Rx's Medication Instructions Recorded methylPREDNISolone [Medrol Dose 4 mg PO DIRECTED #1 pack 11/06/19 Pack] Allergies Allergy/AdvReac Type Severity Reaction Status Date / Time fentanyl Allergy Unknown Verified 07/28/19 14:51 latex Allergy Anaphylaxis Verified 07/28/19 14:51 pregabalin [From Lyrica] Allergy Unknown Verified 07/28/19 14:51 Review of Systems ROS Statement: Those systems with pertinent positive or pertinent negative responses have been documented in the HPI. ROS Other: All systems not noted in ROS Statement are negative. Past Medical History Past Medical History: Fibromyalgia, Osteoarthritis (OA) Additional Past Medical History / Comment(s): laura ringing in ears History of Any Multi-Drug Resistant Organisms: None Reported Past Surgical History: Tubal Ligation Additional Past Surgical History / Comment(s): Tubal ligation, lipoma removal Past Anesthesia/Blood Transfusion Reactions: No Reported Reaction Past Psychological History: Anxiety, Bipolar, Depression Smoking Status: Current some day smoker Past Alcohol Use History: Occasional Past Drug Use History: Marijuana - Past Family History Father Family Medical History: Diabetes Mellitus Additional Family Medical History / Comment(s): Father in his 80s from a stroke and history of diabetes. Mother Additional Family Medical History / Comment(s): Mother is alive at age 94 with Alzheimer's dementia. Brother(s) Additional Family Medical History / Comment(s): Patient has 2 brothers and one has hyperlipidemia. Patient has 4 sisters with no major medical problems. Patient has one son with no major medical problems. Daughter(s) Additional Family Medical History / Comment(s): Patient has one daughter with history of depression and morbid obesity status post bariatric surger y General Exam - General Exam Comments Initial Comments: GENERAL: Patient appears very anxious. HEAD: Atraumatic, normocephalic. EYES: Pupils equal round and reactive to light, extraocular movements intact, sclera anicteric, conjunctiva are normal. ENT: TMs normal, nares patent, oropharynx clear without exudates. Moist mucous membranes. NECK: Normal range of motion, supple without lymphadenopathy or JVD. LUNGS: Breath sounds clear to auscultation bilaterally and equal. No wheezes rales or rhonchi. HEART: Regular rate and rhythm without murmurs, rubs or gallops. EXTREMITIES: Normal range of motion, no pitting or edema. No clubbing or cyanosis. NEUROLOGICAL: Normal speech, normal gait. PSYCH: Anxious. SKIN: Warm, Dry, normal turgor, no rashes or lesions noted. Limitations: no limitations Course Vital Signs 11/06/19 19:50 Temperature 98.5 F Pulse Rate 103 H Respiratory 18 Rate Blood Pressure 178/93 O2 Sat by Pulse 98 Oximetry Medical Decision Making - Medical Decision Making Patient is a 58-year-old female presenting with complaints of an irritated scalp for a few weeks now. Vitals are stable. Exam is unremarkable. Patient seems o verly anxious. Patient will be given dose of steroids for symptom relief as well as started on a steroid Dosepak to start tomorrow. Patient can also take Benadryl at night for relief. Patient is stable for discharge at this time and she is in agreement with this plan of care. If symptoms persist, patient will follow up with PCP. Disposition Clinical Impression: Scalp irritation Disposition: HOME SELF-CARE Condition: Stable Instructions (If sedation given, give patient instructions): Contact Dermatitis (ED) Additional Instructions: Please return to the Emergency Department if symptoms worsen or any other concerns. Take oral steroids as prescribed. Follow-up with PCP if symptoms persist. Prescriptions: methylPREDNISolone [Medrol Dose Pack] 4 mg PO DIRECTED #1 pack Is patient prescribed a controlled substance at d/c from ED?: No Referrals: Joseph Ocasio MD [Primary Care Provider] - 1-2 days
[2019-11-06] MEDS: methylPREDNISolone SOD SUCCI 125 MG/2 ML VIAL IM ONE (20:24)
== END 2019-11-06 20:25 | disposition home or self-care (01) ==
LOC: EC 19:44
DX: L98.9 Disorder of the skin and subcutaneous tissue, unspecified (principal); F41.9 Anxiety disorder, unspecified; F17.200 Nicotine dependence, unspecified, uncomplicated; Z88.5 Allergy status to narcotic agent; Z91.040 Latex allergy status; Z88.8 Allergy status to other drugs, medicaments and biological substances
CPT/HCPCS: 99283; 96372; J2930

== ENCOUNTER → 2020-07-24 | Outpatient (CLI) | payer MEDICARE ==
--- NOTE | 2020-07-24 15:53 | US ---
EXAMINATION TYPE: US thyroid st tissue head/neck DATE OF EXAM: 07/24/2020 COMPARISON:US CLINICAL HISTORY: Multinodular thyroid E04.2. no thyroid medication per patient. GLAND SIZE: Right Lobe: 4.4 x 1.5 x 0.9 cm Overall Parenchyma: homogenous Left Lobe: 5.0 x 1.2 x 0.9 cm Overall Parenchyma: homogeneous Isthmus Thickness: 0.2 cm NODULES RIGHT: # of nodules measured on right: 3 largest of multiple nodules. 1. 0.5 X 0.5 x 0.4 cm hypoechoic cystic nodule at the upper pole with well-defined margins; interru pted peripheral calcification. This nodule is wider than tall and shows no intranodular vascularity. Prior size: 0.6 x 0.4 x 0.4 cm 2. 0.7 X 0.6 x 0.7 cm hypoechoic cystic nodule at the lower pole with well-defined margins; interrup [place] peripheral calcification. This nodule is taller than wide and shows no intranodular vascularity. Prior size: 0.7 x 0.6 x 0.5 cm 3. 0.6 X 0.6 x 0.5 cm hypoechoic cystic nodule at the lower medial pole with well-defined margins; i nterrupted peripheral calcification. This nodule is wider than tall and shows no intranodular vascul arity. Prior size: 0.5 x 0.4 x 0.5 cm LEFT: # of nodules measured on left: 1 1. 1.0 X 0.8 x 0.6 cm hypoechoic cystic nodule at the upper pole with well-defined margins; interru pted peripheral calcification. This nodule is wider than tall and shows no intranodular vascularity. Prior size: 0.9 x 0.5 x 0.7 cm ISTHMUS: # of nodules measured in the isthmus: 0 Bilateral neck scanned: no evidence of lymphadenopathy. IMPRESSION: Stable nonspecific thyroid nodularity.
== END | disposition home or self-care (01) ==
LOC: RADUSWWP 15:10
PROVIDERS: ATTEND Surgery
DX: E04.2 Nontoxic multinodular goiter (principal)
CPT/HCPCS: 76536